=== PATIENT | female | born 1945 | race Caucasian/White ===

== ENCOUNTER 2018-02-01 08:45 | Emergency (ER) | payer MEDICARE, SELFPAY ==
[2018-02-01 08:54] VITALS: BP 150/74; PULSE 94; RESP 18; TEMP 36.4; O2SAT 100; BMI 24.0
--- NOTE | 2018-02-01 09:19 | DI.RAD.S_ITS ---
PROCEDURE: XR CHEST 2V INDICATIONS: SHORTNESS OF BREATH TECHNIQUE: 2 views of the chest were acquired. COMPARISON: None. FINDINGS: Surgical changes and devices: None. Lungs and pleura: No pleural effusions or pneumothorax. Lungs are clear. Mediastinum: Mediastinal contours are normal. Heart size is normal. Bones and chest wall: No suspicious bony abnormalities. Soft tissues appear unremarkable. IMPRESSION: No acute cardiopulmonary disease. Dictated by: Destin Lara M.D. on 02/01/2018 at 10:11 Approved by: Destin Lara M.D. on 02/01/2018 at 10:11
[2018-02-01] MEDS: KETOROLAC 60 MG/2 ML VIAL 15 MG IV (09:35)
[2018-02-01 09:37] LABS: Add Manual Diff / Slide Review NO; Basophils Percent Auto 0.8 % (0-2); Eosinophils Percent Auto 2.9 % (2-4); Hematocrit 42.4 % (36-46); Hemoglobin 14.3 g/dL (12.0-16.0); Mean Corpuscular HGB Conc 33.7 % (30-36); Mean Corpuscular Hemoglobin 32.7 PG (26-34); Mean Corpuscular Volume 96.8 fL (80-100); Monocytes Percent Auto 7.2 % (3-14); Neutrophils Absolute Auto 4200 /uL (3000-5900); Neutrophils Percent Auto 67.1 % (50-75); Platelet Count 257 X10^3/uL (150-400); Red Blood Cell Count 4.38 X10^6/uL (4.0-5.2); Red Cell Distribution Width 12.8 % (11.6-14.8); White Blood Cell Count 6.2 X10^3/uL (4.5-11.0)
[2018-02-01 09:49] LABS: Alanine Aminotransferase 16 IU/L (9-52); Albumin 4.1 g/dL (3.5-5.0); Albumin Globulin Ratio 1.3 (1.0-2.8); Alkaline Phosphatase 64 U/L (38-126); Aspartate Aminotransferase 18 IU/L (14-36); BUN Creatinine Ratio 22.5 (6-22); Bilirubin Total 0.5 mg/dL (0.2-1.3); Blood Urea Nitrogen 18 mg/dL (7-17); Calcium 9.2 mg/dL (8.4-10.2); Carbon Dioxide 28 mmol/L (22-32); Chloride 105 mmol/L (98-107); Estimated Glomerular Filt Rate > 60.0 mL/min (>60); Globulin 3.1 g/dL (1.7-4.1); Glucose 92 mg/dL (80-110); HEMOLYSIS < 15 (0-50); Lipase 75 U/L (23-300); Sodium 140 mmol/L (137-145); Total Protein 7.2 g/dL (6.3-8.2)
[2018-02-01 10:01] LABS: Troponin I < 0.012 ng/mL (0.01-0.034)
--- NOTE | 2018-02-01 10:08 | DI.CT.S_ITS ---
PROCEDURE: CT ABDOMEN PELVIS W CON INDICATIONS: Right flank pain TECHNIQUE: After the administration of intravenous contrast, 5 mm thick sections acquired from the diaphragm to the symphysis. 5 mm coronal and sagittal reformats were acquired. For radiation dose reduction, the following was used: automated exposure control, adjustment of mA and/or kV according to patient size. COMPARISON: None. FINDINGS: Image quality: Excellent. ABDOMEN: Lung bases: There is a 3 mm subpleural nodule in lingula. Scar/atelectasis in lingula. Heart size is normal. Small hiatal hernia. Solid organs: Liver is normal in size and enhancement. Gallbladder is surgically absent. Biliary system is non dilated. Pancreas enhances normally. Spleen is normal in size and enhancement. No adrenal nodules. Kidneys demonstrate normal size and enhancement, without hydronephrosis. Peritoneum and bowel: There may be mild diffuse colonic wall thickening involving the ascending, transverse, and descending colon. There are a few colonic diverticula. No evidence for active diverticulitis. Bowel loops demonstrate normal caliber. Appendix is not visualized. No free fluid or air. Nodes and vessels: No retroperitoneal or mesenteric adenopathy by size criteria. Aorta and inferior vena cava are normal in size. Miscellaneous: No ventral hernias. PELVIS: Genitourinary: Bladder wall thickness is normal. Uterus is normal. No adnexal mass or pathological free fluid. Miscellaneous: No inguinal hernias or adenopathy. Bones: No suspicious bony lesions. No vertebral body compression fractures. IMPRESSION: 1. Suspect mild colitis involving the ascending, transverse and descending colon with mild diffuse colonic wall thickening. A differential diagnosis is artifact from lack of distention. Recommend clinical correlation. 2. Mild diverticulosis. No active diverticulitis. 3. No kidney stones or hydronephrosis. Dictated by: Destin Lara M.D. on 02/01/2018 at 10:26 Approved by: Destin Lara M.D. on 02/01/2018 at 10:39
[2018-02-01 10:15] VITALS: BP 120/62; PULSE 72; RESP 16; O2SAT 97
[2018-02-01 11:10] VITALS: BP 122/59; PULSE 76; RESP 16; O2SAT 98
--- NOTE | 2018-02-01 11:45 | ED_ITS ---
HPI - Abdominal Pain General Chief Complaint: Abdominal Pain Stated Complaint: RT SIDED PAIN/BACK PAIN History of Present Illness HPI narrative: HPI 73-year-old female with history of appendectomy, cholecystectomy, and hypothyroidism presents for evaluation of ~1/2 day of worsened poorly characterized right upper flank/right upper quadrant pain that is nonradiating, minimally waxing waning, is without clear provoking or relieving symptoms; patient endorsed several weeks of poorly characterized and migratory abdominal discomfort that is been in all aspects of the abdomen other than the right lower quadrant. No history of DVT or PE, no shortness breath, symptoms are not worsen with deep inspiration. No recent night sweats, fevers, chills, unexpected weight loss. Denies nausea and vomiting. Continues to pass flatus and stool at baseline. Denies dysuria and urinary frequency. Denies a history of atrial fibrillation. M/S/F/SocHx notable for: please see HPI; remainder reviewed with patient and in chart. ROS: Negative constitutional, eye, cardiovascular, pulmonary, GI, , MSK, skin , neurologic, psychiatric, endocrine unless noted in the HPI. Exam Gen: Pleasant, non-toxic appearing, resting comfortably. HEENT: NC, AT, PEERL, EOMI. Resp: Clear to auscultation bilaterally, normal work of breathing, no accessory muscle usage. Card: Regular rate and rhythm with no murmurs, rubs, or gallops, extremities warm and well perfused. GI: Non-tender to palpation throughout all quadrants, no focal tenderness at McBurney's point, negative Baltazar's sign, non-distended, no rebound or guarding. : No suprapubic tenderness to palpation. MSK: No visible deformities, strength and tone without visually appreciable deficit. Skin: Normal color with no visible lesions. Neuro: AO x 3, no facial asymmetry, vision and hearing WNL. Psych: Mood and affect appropriate. Labs / Imaging: CT Abd/Pelvis: 1. Suspect mild colitis involving the ascending, transverse and descending colon with mild diffuse colonic wall thickening. A differential diagnosis is artifact from lack of distention. Recommend clinical correlation. 2. Mild diverticulosis. No active diverticulitis. 3. No kidney stones or hydronephrosis. CXR: No acute cardiopulmonary disease. WBC 6.2, Hb 14.3, Na 140, K 4.0, Cr 0.80 Conjugated bilirubin 0.5, ALP 64, AST 18, ALT 16, lipase 75 UA - negative nitrites, negative leukocyte esterase. EKG: SR 76 bpm, no ST segment elevations or depressions, no LBBB. MDM Previous chart, nursing note, labs, imaging, and vitals reviewed. A: 73-year-old female with history of appendectomy, cholecystectomy, and hypothyroidism presents for evaluation of ~1/2 day of worsened poorly characterized right upper flank/right upper quadrant pain that is nonradiating, minimally waxing waning, is without clear provoking or relieving symptoms; patient endorsed several weeks of poorly characterized and migratory abdominal discomfort that is been in all aspects of the abdomen other than the right lower quadrant. DDx: UTI, ureterolithiasis, pyelonephritis, colitis, diverticulitis, pneumonia, ACS, Gerd, gastritis. Evaluation: imaging suggestive of mild colitis involving the ascending, transverse, descending colon, this is generally consistent with the history provided by the patient, no clear evidence of the remainder of the differential. Imaging and history without clear evidence of ulcerative colitis or Crohn's disease. Patient prescribed [place], ciprofloxacin, and Flagyl instructed to follow-up with her PCP for further evaluation care. Impression: colitis (please reference below for remainder of encounter information) Related Data Home Medications Medication Instructions Recorded Confirmed levothyroxine [Synthroid] See Label Instructions .ROUTE 02/01/18 02/01/18 .COMPLEX Allergies Allergy/AdvReac Type Severity Reaction Status Date / Time No Known Drug Allergies Allergy Verified 02/01/18 08:54 Exam Initial Vital Signs Initial Vital Signs: Vital Signs Temperature 97.6 F 02/01/18 08:54 Pulse Rate 94 H 02/01/18 08:54 Respiratory Rate 18 02/01/18 08:54 Blood Pressure 150/74 H 08/03/18 08:54 Pulse Oximetry 100 08/03/18 08:54 Course Orders Ordered: ED Orders 02/01/18 09:19 XR chest 2V Stat Urinalysis and Microscopic Stat 02/01/18 09:20 EKG-12 Lead Stat 02/01/18 09:30 Complete Blood Count AUTO DIFF Stat Comprehensive Metabolic Panel Stat Lipase Stat Troponin I Stat 02/01/18 10:08 CT abdomen pelvis w con Stat Discontinued Medications Ketorolac Tromethamine (Toradol) 15 mg IV NOW ONE Stop: 02/01/18 09:20 Last Admin: 02/01/18 09:35 Dose: 15 mg Vital Signs - 8 hr 02/01/18 08:54 02/01/18 10:15 02/01/18 11:10 Temperature 97.6 F Pulse Rate 94 H 72 76 Respiratory Rate 18 16 16 Blood Pressure 150/74 H Blood Pressure [Left Arm] 120/62 122/59 H Pulse Oximetry 100 97 98 MDM - Abdominal Pain Lab Data Result diagrams: 02/01/18 09:30 02/01/18 09:30 Lab Results 02/01/18 02/01/18 Range/Units 09:30 09:30 WBC 6.2 (4.5-11.0) X10^3/uL RBC 4.38 (4.0-5.2) X10^6/uL Hgb 14.3 (12.0-16.0) g/dL Hct 42.4 (36-46) % MCV 96.8 (80-100) fL MCH 32.7 (26-34) PG MCHC 33.7 (30-36) % RDW 12.8 (11.6-14.8) % Plt Count 257 (150-400) X10^3/uL Neut % (Auto) 67.1 (50-75) % Lymph % (Auto) 22.0 L (25-40) % [place] % (Auto) 7.2 (3-14) % Eos % (Auto) 2.9 (2-4) % Baso % (Auto) 0.8 (0-2) % Neut # (Auto) 4200 (8408-7098) /uL Sodium 140 (137-145) mmol/L Potassium 4.0 (3.4-5.1) mmol/L Chloride 105 (98-107) mmol/L Carbon Dioxide 28 (22-32) mmol/L BUN 18 H (7-17) mg/dL Creatinine 0.80 (0.52-1.04) mg/dL Estimated GFR > 60.0 (>60) mL/min BUN/Creatinine Ratio 22.5 H (6-22) Glucose 92 (80-110) mg/dL Calcium 9.2 (8.4-10.2) mg/dL Total Bilirubin 0.5 (0.2-1.3) mg/dL AST 18 (14-36) IU/L ALT 16 (9-52) IU/L Alkaline Phosphatase 64 (38-126) U/L Troponin I < 0.012 (0.01-0.034) ng/mL Total Protein 7.2 (6.3-8.2) g/dL Albumin 4.1 (3.5-5.0) g/dL Globulin 3.1 (1.7-4.1) g/dL Albumin/Globulin Ratio 1.3 (1.0-2.8) Lipase 75 (23-300) U/L Point of care testing: Urine Dip Bedside Urine Glucose Negative Bedside Urine Bilirubin - Negative Bedside Urine Ketone - Negative Urine Specific [place] 1.030 Bedside Urine Occult Blood - Negative Bedside Urine pH 5.5 Bedside Urine Protein - Negative Bedside Urine Urobilinogen - Negative Bedside Urine Nitrite - Negative Bedside Urine Leukocytes - Negative Esterase Discharge Plan Departure Prescriptions: No Action levothyroxine [Synthroid] 175 mcg Tablet See Label Instructions .ROUTE .COMPLEX RF: 0
== END 2018-02-01 12:22 | disposition home or self-care (01) ==
PROVIDERS: Emergency Provider Emergency Medicine
DX: K52.9 Noninfective gastroenteritis and colitis, unspecified (principal)
CPT/HCPCS: 36591; 71046; 74177; 80053; 81003; 83690; 84484; 85025; 93005; 93010; 96374; 99282; 99285; J1885; Q9967

== ENCOUNTER 2018-02-05 08:16 | Emergency (ER) | payer MEDICARE, SELFPAY ==
[2018-02-05 08:21] VITALS: BP 128/81; PULSE 74; RESP 14; TEMP 36.5; O2SAT 98; BMI 24.0
--- NOTE | 2018-02-05 09:09 | ED.NAVMDI ---
HPI - Nausea/Vomiting/Diarrhea General Chief complaint: Nausea/Vomiting/Diarrhea Stated complaint: DIARRHEA WORSENING Time Seen by Provider: 02/05/18 08:30 Source: patient Mode of arrival: ambulatory History of Present Illness HPI Narrative: Patient is a 73-year-old female presenting with diarrhea. She has had diarrhea for the last 2 days. She was diagnosed with colitis 4 days ago and started on Cipro and Flagyl. At that time she did not have diarrhea. She denies any abdominal pain nausea vomiting fevers. She is staying hydrated by drinking Gatorade and eating some even. She was concerned about the diarrhea she is going 3 to 5 times a day she says it is watery. MD complaint: diarrhea Related Data Home Medications Medication Instructions Recorded Confirmed levothyroxine [Synthroid] See Label Instructions .ROUTE 02/01/18 02/01/18 .COMPLEX Previous Rx's Medication Instructions Recorded ciprofloxacin HCl 500 mg PO BID #20 tab 02/01/18 hydrocodone-acetaminophen [[place]] See Label Instructions .ROUTE 02/01/18 .COMPLEX #12 tab metronidazole [Flagyl] 500 mg PO TID #30 tab 02/01/18 Allergies Allergy/AdvReac Type Severity Reaction Status Date / Time No Known Drug Allergies Allergy Verified 02/05/18 08:21 Review of Systems Review of Systems GENERAL: Denies chills, fatigue, malaise, fever, sweats, travel HEENT: Denies sinus pain, ear pain, sore throat, difficulty swallowing, neck pain RESPIRATORY: Denies dyspnea, cough, wheezing, hemoptysis, sputum. CARDIOVASCULAR: Denies chest pain, palpitations, orthopnea, edema GASTROINTESTINAL: See HPI : Denies dysuria, frequency, incontinence, hematuria, urinary retention, flank pain. MUSCULOSKELETAL: Denies weakness, joint pain, or bony pain SKIN: No rash, no erythema, no pruritus NEUROLOGIC: Denies weakness, dizziness, headache, numbness, change in speech, confusion PSYCHIATRIC: No concerning psychosocial issues. 12 point review of systems is negative except for those stated above and HPI PFSH Medical History Hypothyroid (Acute) Social History Smoking Status: Never smoker alcohol intake: never substance use type: does not use Exam Initial Vital Signs Initial Vital Signs: Vital Signs Temperature 97.7 F 02/05/18 08:21 Pulse Rate 74 02/05/18 08:21 Respiratory Rate 14 02/05/18 08:21 Blood Pressure 128/81 H 02/05/18 08:21 Pulse Oximetry 98 02/05/18 08:21 GENERAL: Well-appearing, well-nourished and in no acute distress. HEENT: Head atraumatic,EOMI, pupils reactive, face symmetric, moist mucous membranes CARDIOVASCULAR: Regular rate and rhythm without murmurs, rubs or gallops. RESPIRATORY: Breath sounds equal bilaterally, no wheezes rales or rhonchi. ABDOMEN: Soft, nontender. Normoactive bowel sounds all 4 quadrants. No guarding or rebound. EXTREMITIES: Normal range of motion, no clubbing or edema. Neurovascularly intact NEUROLOGICAL: Alert and oriented x4.Normal gait and speech. Cranial nerves II through XII grossly intact. SKIN: Warm, dry, no laceration, no petechiae, no rashes or lesions. Course Vital Signs - 8 hr 02/05/18 08:21 02/05/18 09:38 Temperature 97.7 F 97.7 F Pulse Rate 74 67 Respiratory Rate 14 16 Blood Pressure 128/81 H 118/77 Pulse Oximetry 98 100 MDM - Nausea/Vomiting/Diarrhea Medical Records Attestation: I reviewed the patient's medical records. [facility] Narrative Medical decision making narrative: Patient appears healthy and nontoxic. She was concerned only about diarrhea. Abdomen is nontender. We discussed repeating labs versus watching and waiting. At this time she is comfortable without lab work I discussed all findings with the patient and spouse, Education has been performed regarding treatment plan, diagnosis, warning signs and symptoms and all concerns have been addressed. Verbally agree with and understood all of the above. Discharge Plan Departure Patient Disposition: Home, Self-Care Clinical Impression: Colitis Discharge Date/Time: 02/05/18 09:42 Interventions: ED Discharge Assessment Last Done: 02/05/18 09:38 Instructions: DI for Viral Gastroenteritis -- Adult, DI for Colitis Activity Restrictions/Additional Instructions: *You have been diagnosed with colitis versus gastroenteritis *What to do: Continue with hydration and gentle diet -I expect diarrhea of should start to taper down *Continue to take medications as directed -continue to take antibiotics as previously directed for 7 days total *Follow up with your primary care provider in 2-3 days *Return to ER if you should have persisting worsening diarrhea, increased abdominal pain, fever, vomiting or any new, worsening or concerning symptoms Prescriptions: No Action levothyroxine [Synthroid] 175 mcg Tablet See Label Instructions .ROUTE .COMPLEX RF: 0 hydrocodone-acetaminophen [[place]] 5-325 mg tablet See Label Instructions .ROUTE .COMPLEX Qty: 12 RF: 0 metronidazole [Flagyl] 500 mg tablet 500 mg PO TID Qty: 30 RF: 0 ciprofloxacin HCl 500 mg tablet 500 mg PO BID Qty: 20 RF: 0
[2018-02-05 09:38] VITALS: BP 118/77; PULSE 67; RESP 16; TEMP 36.5; O2SAT 100
--- NOTE | 2018-02-10 19:18 | PC.NURSE ---
pt call back questions 1&2 very pleased
== END 2018-02-05 09:42 | disposition home or self-care (01) ==
PROVIDERS: Emergency Provider Emergency Medicine
DX: K52.9 Noninfective gastroenteritis and colitis, unspecified (principal)
CPT/HCPCS: 99282